=== PATIENT | male | born 1960 | race Caucasian/White ===

== ENCOUNTER 2017-10-03 12:08 | Emergency (ER) | payer BC ==
--- NOTE | 2017-10-03 12:32 | CPEKG ---
Heart Rate: 138 RR Interval: 435 QRSD Interval: 94 QT Interval: 328 QTC Interval: 497 QRS [place]: -82 T Wave [place]: 61 EKG Severity - ABNORMAL ECG - EKG Impression: ATRIAL FLUTTER WITH 2:1 AV BLOCK EKG Impression: LEFT ANTERIOR FASCICULAR BLOCK EKG Impression: ST DEPRESSION, CONSIDER ISCHEMIA, INF LEADS EKG Impression: BORDERLINE ST ELEVATION, ANTEROLATERAL LEADS EKG Impression: BORDERLINE PROLONGED QT INTERVAL Electronically Signed By: Adela Borges 03-Oct-2017 16:27:54
[2017-10-03] MEDS ORDERED: NS 1,000 ML IV ONE ×2 (12:33→12:38)
[2017-10-03] MEDS ORDERED: DILTIAZEM 25 MG/5 ML VIAL IVP ONE (12:37)
--- NOTE | 2017-10-03 12:37 | EDPHY ---
HPI/HX/ROS/PE/MDM Narrative: CHIEF COMPLAINT: HISTORY OF PRESENT ILLNESS: 57 y/o male with history of atrial flutter presents with tachycardia. Had an episode of atrial flutter one year ago and underwent electrical cardioversion. He was on Warfarin for one month following this but has felt well since. He had a stress test one month ago which was reportedly normal. He is visiting from [place] for his son's graduation from [employer]. He felt well early yesterday and hiked to [facility] yesterday with no symptoms. Yesterday evening, he noticed his heart rate was elevated around 80-85, and he felt "abnormal" and mildly short of breath. He denies chest pain. This morning, he noted elevated heart rate around 120-130 and shortness of breath again.He denies history of DVT or PE. No known history of hypertension. He did consume an alcoholic drink last night. He denies marijuana or illicit drug use. No fever, chills, chest pain, vomiting, diarrhea, urinary complaints, headache, lightheadedness. REVIEW OF SYSTEMS: Aside from elements discussed in the HPI, a comprehensive 10-point review of systems was reviewed and is negative. PAST MEDICAL HISTORY: Atrial flutter. History of prostate cancer. SOCIAL HISTORY: . at bedside. Social alcohol use. Nonsmoker ( occasional cigar use). No illicit drug use. VITAL SIGNS: Reviewed by me GENERAL: Anxious-appearing. Well-developed, well-nourished, resting comfortably in no respiratory distress. HEENT: Atraumatic. Eyes: No icterus, no injection. Mouth: moist mucous membranes. No erythema or lesions. Neck: supple with no adenopathy. LUNGS: Clear to auscultation bilaterally, no wheezes, rhonchi or rales. CARDIAC: Regular tachycardia, no rubs, murmurs or gallops. ABDOMEN: Soft, nontender, nondistended, bowel sounds normal. BACK: No CVA tenderness. EXTREMITIES: No trauma. No edema. Range of motion is normal throughout. NEURO: Alert and oriented, grossly nonfocal. SKIN: Warm and dry, no rash. PSYCHIATRIC: Normal mentation, no agitation. Portions of this note were transcribed by a medical appointment clerk. I personally performed a history, physical exam, medical decision making, and confirmed accuracy of information the transcribed note. ED Course: 57 y/o male presents with atrial flutter. Plan for EKG, chest x-ray, labs including CBC, chemistries, troponin, d-dimer. 12-LEAD EKG: Please see the full report in [facility]. My interpretation: Atrial flutter. ST elevation. Plan to administer 20mg IV Diltiazem for rate control. 12:49 After 10mg IV Diltiazem, HR decreased to 75. Jonnie Felder, [employer]ING ENGINEER for cardiology, consulted the patient. Plan to admit. Dr. Smith accepts admission for atrial flutter. Dr. Smith evaluated the patient in the emergency department and consulted with Cardiology. Patient is very, very anxious not to miss his son's graduation. He does not wish to be admitted to the hospital. Please see documentation from Dr. Smith as from Cardiology. Patient received metoprolol in the emergency department and was discharged with metoprolol as well as Eliquis prescriptions. He will return to [facility], [facility] lab, tomorrow for semi elective KENDALL cardioversion of his atrial flutter. MDM: Differential diagnosis of the patient's rapid heart rate and shortness of breath was considered including but not limited to various causes of sinus tachycardia, SVT, atrial flutter, atrial fibrillation, pulmonary embolism, dehydration, cardiac ischemia. - Data Points Imaging Results: Imaging Impressions Chest X-Ray 10/03/17 12:39 Impression: Normal. Imaging: I viewed and interpreted images myself Laboratory Results: Laboratory Results 10/03/17 12:21 10/03/17 12:21 10/03/17 10/03/17 10/03/17 12:57 12:21 12:21 WBC 11.89 10^3/uL H 10^3/uL (3.80-9.50) RBC 5.53 10^6/uL 10^6/uL (4.40-6.38) Hgb 16.5 g/dL g/dL (13.7-17.5) Hct 47.4 % % (40.0-51.0) MCV 85.7 fL fL (81.5-99.8) MCH 29.8 pg pg (27.9-34.1) MCHC 34.8 g/dL g/dL (32.4-36.7) RDW 12.5 % % (11.5-15.2) Plt Count 330 10^3/uL 10^3/uL (150-400) MPV 9.0 fL fL (8.7-11.7) Neut % (Auto) 71.8 % % (39.3-74.2) Lymph % (Auto) 20.4 % % (15.0-45.0) Snyder % (Auto) 7.0 % % (4.5-13.0) Eos % (Auto) 0.1 % L % (0.6-7.6) Baso % (Auto) 0.3 % % (0.3-1.7) Nucleat RBC Rel Count 0.0 % % (0.0-0.2) Absolute Neuts (auto) 8.53 10^3/uL H 10^3/uL (1.70-6.50) Absolute Lymphs (auto) 2.43 10^3/uL 10^3/uL (1.00-3.00) Absolute Monos (auto) 0.83 10^3/uL H 10^3/uL (0.30-0.80) Absolute Eos (auto) 0.01 10^3/uL L 10^3/uL (0.03-0.40) Absolute Basos (auto) 0.04 10^3/uL 10^3/uL (0.02-0.10) Absolute Nucleated RBC 0.00 10^3/uL 10^3/uL (0-0.01) Immature Gran % 0.4 % % (0.0-1.1) Immature Gran # 0.05 10^3/uL 10^3/uL (0.00-0.10) D-Dimer < 0.27 ug/mLFEU ug/mLFEU (0.00-0.50) Sodium 143 mEq/L mEq/L (135-145) Potassium 4.4 mEq/L mEq/L (3.5-5.2) Chloride 103 mEq/L mEq/L (97-110) Carbon Dioxide 22 mEq/l mEq/l (22-31) Anion Gap 18 mEq/L H mEq/L (8-16) BUN 18 mg/dL mg/dL (7-23) Creatinine 1.0 mg/dL mg/dL (0.7-1.3) Estimated GFR > 60 Glucose 99 mg/dL mg/dL (70-100) Calcium 9.6 mg/dL mg/dL (8.5-10.4) Troponin I 0.018 ng/mL ng/mL (0.000-0.034) TSH 10/03/17 12:20 WBC RBC Hgb Hct MCV MCH MCHC RDW Plt Count MPV Neut % (Auto) Lymph % (Auto) Snyder % (Auto) Eos % (Auto) Baso % (Auto) Nucleat RBC Rel Count Absolute Neuts (auto) Absolute Lymphs (auto) Absolute Monos (auto) Absolute Eos (auto) Absolute Basos (auto) Absolute Nucleated RBC Immature Gran % Immature Gran # D-Dimer Sodium Potassium Chloride Carbon Dioxide Anion Gap BUN Creatinine Estimated GFR Glucose Calcium Troponin I TSH 1.570 uIU/mL uIU/mL (0.465-4.680) Medications Given: Discontinued Medications Diltiazem HCl (Cardizem 25 Mg/5 Ml Vial) 20 mg IVP EDNOW ONE Stop: 10/03/17 12:38 Last Admin: 10/03/17 12:41 Dose: 10 mg Sodium Chloride (Ns) 1,000 mls @ 0 mls/hr IV ONCE ONE PRN Reason: Wide Open Stop: 10/03/17 12:34 Last Admin: 10/03/17 12:34 Dose: 1,000 mls Sodium Chloride (Ns) 1,000 mls @ 0 mls/hr IV EDNOW ONE; Wide Open PRN Reason: Protocol Stop: 10/03/17 12:39 Last Admin: 10/03/17 13:10 Dose: 1,000 mls Diltiazem HCl 125 mg/ Dextrose 125 mls @ 0 mls/hr IV EDNOW ONE; As Directed PRN Reason: Protocol Stop: 10/03/17 12:57 Last Admin: 10/03/17 13:11 Dose: 125 mls Metoprolol Succinate (Toprol Xl) 50 mg PO ONCE ONE Stop: 10/03/17 14:33 Last Admin: 10/03/17 14:37 Dose: 50 mg General Time Seen by Provider: 10/03/17 12:28 Initial Vital Signs: Initial Vital Signs Temperature (C) 36.5 C 10/03/17 12:12 Heart Rate 136 H 10/03/17 12:12 Respiratory Rate 18 10/03/17 12:12 Blood Pressure 152/112 H 10/03/17 12:12 O2 Sat (%) 96 10/03/17 12:12 O2 Delivery Mode Room Air O2 (L/minute) 1 Allergies/Adverse Reactions: No Known Allergies Allergy (Verified 10/03/17 13:39) Home Medications: Medication Instructions Recorded Apixaban [Eliquis] 5 mg PO BID #60 tab 10/03/17 Atorvastatin Calcium [Lipitor 10 10 mg PO HS 10/03/17 mg (*)] Herbals/Supplements -Info Only 1 ea PO DAILY 10/03/17 Metoprolol Succinate 50 mg PO DAILY #30 tab.er.24h 10/03/17 [place]-3 Fatty Acids [Fish Oil 1000 1,000 mg PO DAILY 10/03/17 mg (*)] metFORMIN HCL [Glucophage 500 mg 500 mg PO HS 10/03/17 (*)] Departure - Departure Disposition: Home, Routine, Self-Care Clinical Impression: Atrial flutter Qualifiers: Atrial flutter type: typical Qualified Code(s): I48.3 - Typical atrial flutter Condition: Fair Instructions: Metoprolol (By mouth), Apixaban (By mouth) Additional Instructions: Return tomorrow at 7:00 a.m. to the [facility] lab for elective conversion. If you developed a rapid heart rate between now and tomorrow, please return to the emergency department or contact Cardiology. Referrals: ANA LUISA CRAVEN [Other] Prescriptions: Apixaban [Eliquis] 5 mg PO BID #60 tab Metoprolol Succinate 50 mg PO DAILY #30 tab.er.24h Report Scribed for: Adela Borges Report Scribed by: Shahrzad Pizano Date of Report: 10/03/17 Time of Report: 15:11
[2017-10-03 12:45] LABS: PLATELET COUNT 330 10^3/uL (150-400)
[2017-10-03] MEDS ORDERED: DILTIAZEM 125 MG in D5W 125 ML IV ONE (12:56)
[2017-10-03] MEDS ORDERED: METOPROLOL SUCCINATE XR 50 MG TAB PO ONE (14:32)
[2017-10-03] MEDS ORDERED: METOPROLOL SUCCINATE XR 25 MG TAB PO ONE (14:34)
--- NOTE | 2017-10-03 15:00 | GHP ---
[f rep st] HISTORY AND PHYSICAL DATE OF ADMISSION: 10/03/2017 CHIEF COMPLAINT: Atrial flutter. HISTORY OF PRESENT ILLNESS: A 57-year-old, relatively healthy man who presents in atrial flutter. Kit chandra has had 1 episode of atrial flutter in the past. This was about a oztt-hyu-h-half ago. At that ti me, he was admitted to the hospital overnight, cardioverted. He took Eliquis for about 1 month after this, and then discontinued it. He has not had any episodes since then. He had a stress test as we ll as an echocardiogram about a month ago which he describes as normal. He is visiting from [place] to see his son for graduation. He has had slightly more alcohol than normal, about 2 and a half drinks last night. About 8 o'clock last night, he noted that his heart ra te was going fast. He checked this on his phone, it was going about 130-140. He has not had any jasiel st pain. He has felt slightly short of breath with this. No syncope. He woke up this morning with his heart rate still going fast, went to his son's commencement. He then presented to the emergency department. PAST MEDICAL/SURGICAL HISTORY: 1. A-flutter, as above. 2. Prostate cancer, status post resection. MEDICATIONS: Please see medication reconciliation. ALLERGIES: No known drug allergies. SOCIAL HISTORY: He is from [place]. Drinks as above. FAMILY HISTORY: No arrhythmias. REVIEW OF SYSTEMS: 10-point review of systems is conducted and is negative except per HPI. PHYSICAL EXAM: VITAL SIGNS: Blood pressure 151/101, heart rate 72, respiration rate 18, saturating 98% on 1 L, initially 94% on room air. GENERAL: The patient is a pleasant man who is resting comfor tably. No acute distress. HEENT: Normocephalic, atraumatic. CARDIOVASCULAR: Irregularly irregula r. There are no murmurs, rubs, or gallops. He has no elevated JVD. No lower extremity edema. PULM ONARY: Lungs clear to auscultation bilaterally. ABDOMEN: Soft, nontender, nondistended. SKIN: No rash. : No Molina. NEUROLOGIC: Alert and oriented x3. He is moving all extremities. PSYCHIATR IC: Normal mood and affect. LABS: White count is 11.8. D-dimer is undetectable. Anion gap is 18, troponin 0.018. DATA: 1. I discussed with Dr. Carmona, plan will be as below. 2. I personally viewed and interpreted his ECG, this shows atrial flutter with a rate of 138. He oliveros s mild ST depression in lead II. 3. Chest x-ray, which I personally viewed and interpreted, is unremarkable, normal-sized heart. IMPRESSION AND PLAN: 1. Atrial flutter: I do not think that he needs to be admitted to the hospital for this. We will p carlos alberto to give him 50 mg of metoprolol right now. Will also start him on anticoagulation. I have discu ssed this at length with Dr. Carmona, who is in agreement. Plan will be, if his rate is controlled on t he 50 of metoprolol, to discharge him with followup with an outpatient cardioversion tomorrow morning . He will be nil per os after midnight. Jonnie Felder is seeing him in the emergency department right now. His CHADS-VASc score is 0; however, given need for cardioversion, he will need anticoagul ation. He will also get a prescription for metoprolol. 2. Prostate cancer, status post resection: This is stable, there are no acute issues. 3. New arrhythmia represents high-risk diagnosis. /[id number]/MODL
[2017-10-03] MEDS ORDERED: APIXABAN 5 MG TAB PO ONE (15:30)
[2017-10-03 15:55] VITALS: BP 150/100
--- NOTE | 2017-10-03 16:15 | GDS ---
[f rep st] DISCHARGE SUMMARY DISCHARGE DIAGNOSES: 1. Rapid atrial fibrillation. 2. Prostate cancer, status post prostatectomy. HOSPITAL COURSE: A 57-year-old man who is traveling from [place] to see his son's graduation, pre sented to the emergency department with atrial flutter. He had 1 episode of this about a year-and-a- half ago. He had been cardioverted, was on anticoagulation for about 1 month, has been stable since. He noticed a rapid heart rate last night. In the emergency department, found to be in atrial flutt er. No angina, no syncope. Discussed with Cardiology. He initially received diltiazem intravenous. He was given a dose of metoprolol. He will be discharged with a heart rate of 72 at this point. PLAN: Will be for him to return to the [facility] tomorrow for an outpatient cardioversion. He has been [facility] a prescription for Eliquis, as well. If this goes well, he will be discharged to follow up in [facility]. He is comfortable with this plan. /[id number]/MODL
--- NOTE | 2017-10-03 17:56 | GCON ---
[f rep st] CONSULTATION CARDIOLOGY CONSULTATION DATE OF CONSULTATION: 10/03/2017 REASON FOR CONSULTATION: Atrial flutter with rapid ventricular response. REQUESTING PHYSICIAN: Jose A Smith MD, of hospital services. HISTORY OF PRESENT ILLNESS: The patient is a 57-year-old male. He is visiting from [facility] for his son's graduation at [employer] ([place], [place]) scheduled for tomorrow. He reports he has been in his usual state health and reporting last evening, around 8 p.m., he was sitting and noticed that his heart rate was faster. Reporting normal heart rates in the 50s. He checked this on his phone it was going between 130 and 140 beats per minute. He does report slight shortness of breath, but no chest pressure, lightheadedness, near- syncope, or syncopal events. He reports this is very similar symptoms to when he had atrial flutter in March 2016. He woke up this morning, and his heart was still going fast. He did go to his son's commencement, but then presented to the emergency department for further evaluation. Upon arrival, an electrocardiogram was done showing atrial flutter with ventricular rates running between 130 and 140 beats per minute. He does report significant history, as mentioned above, of atrial flutter in March 2016. Despite medical therapy, he did eventually have to undergo cardioversion. He reported he was on Eliquis for 1 month afterward, reporting no bleeding problems. He mentions that he did undergo echocardiogram at that time, and was told that he had a structurally normal heart. 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 Atrial flutter, as mentioned above. 2. History of prostate cancer. 3. Hyperlipidemia. 4. History of left eye retina detachment in 2001. PAST SURGICAL HISTORY: Includes prostate resection 5 years ago, retina surgery for detachment in 2001, and cardioversion. FAMILY HISTORY: Patient reporting no significant family history of arrhythmias. 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 He is . His son is graduating from the [employer] ([place], [place]) tomorrow. He reports no history of tobacco abuse, reports 1-2 drinks a week, and denies any illicit drug use. ALLERGIES: No known drug allergies. HABITS: Include 500 mg metformin p.o. h.s. and atorvastatin 10 mg p.o. h.s., omega-3 1000 mg p.o. daily, herbs and supplements. Note, metformin and atorvastatin are taken per his urologist for his prostate cancer. REVIEW OF SYSTEMS: A 10-point review of systems done on this patient all, negative except as mentioned above. PHYSICAL EXAMINATION: GENERAL APPEARANCE: Thin, well-groomed, male. He is alert and oriented to person, place, time, and situation. Appears to be in no acute distress. VITAL SIGNS: Current blood pressure of 140/100, heart rate of 80 (atrial flutter on the monitor), respirations 14, saturating 96% in room air. HEENT: Head is normocephalic. Lips and tongue are pink and moist with no signs of cyanosis. Conjunctivae pink. NECK: Trachea is midline. +2 carotid pulses bilateral. No auscultated bruits. No jugular vein distention. RESPIRATORY: Lungs are clear to auscultation. No rhonchi, rales or wheezes. No accessory muscle use. No intercostal muscle retraction noted. CARDIAC: Regular rate, regular rhythm. S1/S2, no S3, S4 gallops, rubs, or murmurs noted. ABDOMEN: Soft, nontender. Bowel sounds x4 quadrants. No organomegaly. No palpable masses. SKIN: [place], warm, and dry. No cyanosis, no clubbing, no peripheral edema. VASCULAR: +2 carotids bilateral, +2 radials bilateral, + 2 dorsal pedal and posterior tibial pulses bilateral. LABORATORY DATA: Drawn today: WBC of 11.89, hemoglobin of 16.5, hematocrit of 47.4, platelet count of 330. D-dimer is less than 0.27. Sodium 143, potassium 4.4, chloride 103, CO2 22, BUN 18, creatinine 1.0, glucose 99, calcium 9.6. Troponin 0.018. TSH 1.50. STUDIES: Electrocardiogram done on admission showing atrial flutter with rapid ventricular response, ventricular rate at 138 BPM. Noted T-wave depression in aVL. Chest x-ray showed no acute cardiopulmonary process. ASSESSMENT/PLAN: Atrial flutter: Patient with past history of atrial flutter; last event a year 1-1/2 years ago. Recently coming to altitude, and reporting some mild EtOH use last evening. Having a sudden episode of atrial flutter with rapid ventricular response. Denying any chest pain, but with mild shortness of breath with exertion. Laboratory studies showing no anemia, normal electrolytes and renal function, normal TSH level, and negative D-dimer. Patient reporting recent stress testing in [place] showing no signs of ischemia and noted to have a structurally normal heart by echocardiogram in 2016. Per discussion with Dr. Smith and Dr. Carmona, the patient is hemodynamically stable after a dose of IV diltiazem, with better rate control. Will start the patient on metoprolol succinate 50 mg p.o. daily now, and anticoagulation with Eliquis 5 mg p.o. b.i.d.. Patient CHADS VAS score of 0, but patient is at high risk of thrombotic event post cardioversion. Will plan for him to be on this one-month. Risks and benefits of anticoagulation therapy explained to the patient and they verbalized understanding and wanting to proceed. Patient did have breakfast this morning and last time coffee with milk around 10 a.m. Due to this, we will plan for him to go home, be n.p.o. after midnight, return for KENDALL cardioversion to be done tomorrow morning at 8 a.m. I have made arrangements with our [facility] and anesthesia. Risks and benefits of the procedure explained to the patient and ; they verbalize understanding and wanting to proceed. The patient has been told that if any problems or concerns come up, he has been informed to take it easy tonight, no alcohol ingestion, and stay hydrated. If he has any problems or concerns after discharge, he is to return to the hospital. Thank you for this consultation. /[id number]/MODL SHELLEY
[2017-10-03] MEDS ORDERED: ATORVASTATIN CALCIUM 10 MG TAB PO SCH (21:00)
[2017-10-03] MEDS ORDERED: metFORMIN HCL 500 MG TAB PO SCH (21:00)
[2017-10-04] MEDS ORDERED: OMEGA-3 FATTY ACIDS 1,000 MG CAP PO SCH (09:00)
[2017-10-04] MEDS ORDERED: Herbals/Supplements -Info Only PO SCH (09:00)
== END 2017-10-03 16:00 | disposition home or self-care (01) ==
LOC: UNDOADMOB 13:08
DX: I48.3 Typical atrial flutter (principal); E86.9 Volume depletion, unspecified; Z85.46 Personal history of malignant neoplasm of prostate
CPT/HCPCS: 96374

== ENCOUNTER 2017-10-04 06:53 | Day surgery (SDC) | payer BC ==
[2017-10-04] MEDS ORDERED: MIDAZOLAM 2 MG/2 ML VIAL IVP ONE (07:08)
[2017-10-04] MEDS ORDERED: ATROPINE SULFATE 1 MG/10 ML SYR IVP ONE (07:08)
[2017-10-04] MEDS ORDERED: fentaNYL 100 MCG/2 ML INJ IVP ONE (07:08)
[2017-10-04] MEDS ORDERED: NS 500 ML IV ONE (07:08)
--- NOTE | 2017-10-04 07:22 | CPEKG ---
Heart Rate: 79 RR Interval: 759 P-R Interval: 196 QRSD Interval: 122 QT Interval: 404 QTC Interval: 464 P [place]: 0 QRS [place]: -79 T Wave [place]: 48 EKG Severity - ABNORMAL ECG - EKG Impression: NONSPECIFIC IVCD WITH LAD EKG Impression: atrial flutter Electronically Signed By: Jaziel Diaz 04-Oct-2017 13:04:45
[2017-10-04 08:01] LABS: INR 1.29 (0.83-1.16); PROTIME(PATIENT) 16.3 SEC (12.0-15.0)
--- NOTE | 2017-10-04 08:22 | PDHPUP ---
History & Physical Update H&P update statement: This history and physical update is based on an assessment of the patient which was completed after admission or registration (within 24 hours), but prior to the surgery/procedure. H&P update: H&P reviewed & patient examined, no change in patient's condition since H&P completed (Reviewed consult note by Jonnie Felder NP dated 2017)
[2017-10-04] MEDS ORDERED: PROPOFOL 200 MG/20 ML VIAL ONE ×2 (08:32→08:33)
--- NOTE | 2017-10-04 08:32 | PDANEPAE ---
ANE History of Present Illness A-flutter ANE Past Medical History - Pulmonary History Hx Oxygen in Use at Home: No Hx Sleep Apnea: No - Endocrine History Hx Diabetes: No ANE Review of Systems Review of Systems: ANE Patient History - Allergies Allergies/Adverse Reactions: No Known Allergies Allergy (Verified 10/03/17 13:39) - Home Medications Home Medications: Atorvastatin Calcium [Lipitor 10 mg (*)] 10 mg PO HS 10/03/17 [Last Taken 21:00] Herbals/Supplements -Info Only 1 ea PO DAILY 10/03/17 [Last Taken 10/03/17 21:00 ] [place]-3 Fatty Acids [Fish Oil 1000 mg (*)] 1,000 mg PO DAILY 10/03/17 [Last Taken 10/03/17 21:00] metFORMIN HCL [Glucophage 500 mg (*)] 500 mg PO HS 10/03/17 [Last Taken 21:00] - Smoking Hx Smoking Status: Never smoked ANE Labs/Vital Signs - Vital Signs Height: 183 cm Weight: 74.8 kg ANE Physical Exam - Airway Neck exam: FROM Mallampati Score: Class 1 Mouth exam: normal dental/mouth exam - Pulmonary Pulmonary: no respiratory distress - Cardiovascular Cardiovascular: regular rate and rhythym - ASA Status ASA Status: II ANE Anesthesia Plan Anesthesia Plan: GA with mask (Brief IV GA)
[2017-10-04] MEDS ORDERED: LIDOCAINE 1% 5 ML SDV ONE (08:33)
--- NOTE | 2017-10-04 09:15 | PDTEE1 ---
KENDALL Cardioversion Procedure Procedure: electrical cardioversion, transesophageal echo Indications: other (atrial flutter) Anticoagulation: eliquis Procedural Details: Sedation provided by the anesthesia service. Pads were placed in anterior- posterior position. KENDALL probe was advanced and standard images obtained. There is no evidence of left atrial or left atrial appendage thrombus. Synchronized cardioversion attempt #1: 200J Results: normal sinus rhythm Conclusions: successful KENDALL cardioversion
--- NOTE | 2017-10-04 09:36 | POSTANESTH ---
Post Anesthetic Evaluation Cardiovascular Status: Normal, Stable Respiratory Status: Normal, Stable Level of Consciousness/Mental Status: Can Participate in Eval Pain Control: Adequate, Prn Tx Ordered Nausea/Vomiting Control: Adequate, Prn Tx Ordered Complications Possibly Related to Anesthesia: None Noted
--- NOTE | 2017-10-04 10:57 | ECHO ---
[email or web address] [address] [address] Main: [phone] Fax: Transesophageal Echocardiography Name: ELIU CHEUNG MR#: [id number] Study Date: 10/04/2017 Study Time: 08:48 AM Date of : 1960 Age: 57 year(s) Height: ( ) Weight: ( ) BSA: Gender: Male Examination: KENDALL Indication: Pre Cardioversion Image Quality: Contrast: Requested by: Shawanda Carmona Heart Rate: Rhythm: Atrial flutter BP: / Procedure Staff Kettle Girl: Anoop Kellogg RDCS Reading Physician: Shawanda Carmona MD Requesting Provider: KENDALL Exam Details Conclusions: Mildly reduced systolic LV function. The ejection fraction is estimated to be 40-45 %. mild global hypokinesis. No regional wall motion abnormality. An agitated saline study was performed and was negative for intracardiac shunting. No thrombus in left appendage. Mild mitral valve regurgitation is present. proceed with successful cardioversion Measurements: Chambers Valvular Assessment AV/MV Valvular Assessment TV/PV Normal Normal Normal Name Value Range Name Value Range Name Value Range Visual EF: 45 % EF Range: 40-45 % Additional Measurements: Findings: Left Ventricle: Mildly reduced systolic LV function. The ejection fraction is estimated to be 40-45 %. The ejection fraction is visually estimated to be 45 %. mild global hypokinesis. No regional wall motion abnormality. Left Atrium: Patient: ELIU CHEUNG Study Date: 10/04/2017 Page 1 of 2 08:48 AM The left atrium is normal in size. An agitated saline study was performed and was negative for intracardiac shunting. Left Atrial Appendage: Good color flow doppler in the left atrial appendage. No thrombus in left appendage. Mitral Valve: The mitral valve is normal in appearance. Mild mitral valve regurgitation is present. Aortic Valve: The aortic valve is tri-leaflet and functions normally. Trivial aortic valve regurgitation. Tricuspid Valve: The tricuspid valve is normal in appearance and function. Trivial tricuspid valve regurgitation. Pulmonic Valve: The pulmonic valve is normal in appearance and function. Aorta: The aorta is normal. Pericardium: No pericardial effusion. l1n (No Signature Object) Patient: ELIU CHEUNG Study Date: 10/04/2017 Page 2 of 2 08:48 AM [id number]
--- NOTE | 2017-10-06 11:40 | CPEKG ---
Heart Rate: 60 RR Interval: 1000 P-R Interval: 156 QRSD Interval: 94 QT Interval: 416 QTC Interval: 416 P [place]: 42 QRS [place]: -15 T Wave [place]: 46 EKG Severity - OTHERWISE NORMAL ECG - EKG Impression: SINUS RHYTHM EKG Impression: BORDERLINE LEFT AXIS DEVIATION Electronically Signed By: Charles Danielle 07-Oct-2017 08:54:36
== END 2017-10-04 10:35 | disposition home or self-care (01) ==
LOC: FCATH 06:53
PROVIDERS: ATTEND Internal Medicine Cardiovascular Disease
PROC: B245ZZ4 Ultrasonography of Left Heart, Transesophageal (ICD-10-PCS; principal; 2017-10-04)
PROC: 5A2204Z Restoration of Cardiac Rhythm, Single (ICD-10-PCS; principal; 2017-10-04)
DX: I48.92 Unspecified atrial flutter (principal); Z79.01 Long term (current) use of anticoagulants
CPT/HCPCS: J2704